=== PATIENT | female | born 2000 | race Caucasian/White ===

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

== ENCOUNTER 2018-05-15 05:35 | Day surgery (SDC) | payer SELFPAY ==
--- NOTE | 2018-05-14 21:09 | PDGENHP ---
History and Physical - Chief Complaint Right Hip Pain - History of Present Illness 1. History of Right MARY 2. History of Left MARY 3. 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 ~~Bilateral Femoral Antetorsion ( Clinical) HISTORY OF PRESENT ILLNESS: Alecis a 18 y.o.~~female~who I have had the pleasure to consult on today. I have enjoyed meeting her.~Deanne~lives in [facility].~~Deanne~is single;~deanne~has no ~children. ~Alecenjoys volleyball, walking and working out occasionally. Georgiana's~bilateral~hip pain started in 2009, with~no~recalled trauma or injury , and with no~previous complaints. Alecdoes not have~a known history of hip dysplasia. Presentation today is of~C type~bilateral~hip pain and some times radiate to her knee on the left. ~The hip~does~wake her~at night and does~click and catch on her. Sitting~can be uncomfortable~for her.~Alecdoes~report suffering from lower back pain episodes. Alechas not~participated in physical therapy and has~tried other conservative measures including excercises.~Deanne~has not~received sufficient symptomatic improvement. Alechas~utilized medication for pain management, including NSAID and OTC acetaminophen.~Alechas used medication for 5~years. Alecunderstands that she~has a hip and pelvis problem which should be researched and wishes to get a better understanding of her~hip status, followed by an establishment of a treatment strategy, hoping chakawould be able to get back to her~well being active life. History: Past medical history:~~ None which is relevant~ Relevant familial history:~Mom has had B/L hip replacement and the first one was when she was 33 years. Multiple family members has had hip replacement at young age. Past surgical history:~ Left Hip Scope Left MARY Left hip hardware removal Right Hip Scope Right MARY Alechad no issues with general anesthesia. I have reviewed, verified and agree with the past medical, surgical, family and social history. Current Medications:~has a current medication list which includes the following prescription(s): lorazepam, proair hfa, prochamber, and symbicort. ~ ALLERGIES:~has No Known Allergies. Objective: Physical Examination: Alecis 5~feet 2~inches tall and weighs 122~Lbs. Alecis AAO x3; she~is well-nourished, in NAD. Skin is warm and dry. ~Breathing is non-labored. ~CV with RRR by pulse. Abdomen is soft, NTND. Currently,~she~walks with a normal~gait. Trendelenburg sign is~negative~and proprioception is normal,~both~sides. She~presents with moderate~signs of joint laxity. Beightons Score:~5 ~ Lower spine examination is~negative~for sciatic or femoral nerve irritation with negative~SLR &~femoral stretch tests. Range of motion of the spine is normal~for flexion, extension, and rotations, with~no~associated pain. Axial lumbar pain. Strength, Sensation and pulses are~normal -~bilaterally Ankles and knees exams are~normal~and no~mal-alignment is evident. She~has no leg length discrepancy. Thigh circumference is~symmetric~with no evidence for muscle atrophy~on both~ sides. Hip ROM (degrees): FL ER At 90~hip FL IR At 90~hip FL AB AD EX IR Neutral hip ER Neutral hip R 120 50 55 55 15 5 75 40 L 120 50 60 50 5 0 70 20 Specific hip and pelvis tests: Quadrant CHENCHO Roll Add. Longus R +++ +++ Negative Negative L +++ +++ Negative + Glut. Med ITB Pos. Imp R Negative 5/5 strength Negative 5/5 strength Negative L Negative 5/5 strength Negative 5/5 strength Negative Squeeze test measured~normal Bony Symphysis pubis is~pain free~to touch while concentric activity of the rectus abdominis, does~not~produce pain at its insertion. Ilio Psos specific tests are~negative for pain during cycling for~both hips~and no snap. HF has~good strength, no pain~both hips. Anterior~and lateral~capsule tenderness~bilaterally. Greater trochanteric burse is~painful~on the left hip. Piriformis tests: FAIR is~negative,~with no~local signs of neuritis related to sciatic nerve. SIJs examination is~produces pain on~left side~with normal~CHENCHO in relation and local tenderness. Hamstrings tests are~positive~functional contraction and positive~tendinopathy both hips. On a daily basis, the following percentages reflect~Georgiana's overall total pain: Deep hip:~100% Imaging: Radiology studies which I have personally reviewed, analyzed and measured are below: XR: AP of the hip and pelvis: Performed in a~good~technique Coccyx to pubic symphysis distance~1~cm. 10 degrees~caudal. [place] Lines are~preserved. No~Pathological signs are seen in the Symphysis Pubis. No~Pathological signs are seen at the Ischial tuberosity. ~ Specific measurements show: NSA~ LCE Sourcil~Angle Sharp's angle Lat. Cam Lat. Pincer C.Over~sign Head~Coverage % ATDmm R N 19 11 43 + - 12 69 N L N 17 12 44 + - - 67 N Pos. wall sign ISS NAD ~~Dysplasia Comments R Negative Negative 12.2~mm +++ L Negative Negative 14.9~mm +++ Sclerosis Sup. Lat. OA Cysts Joint Space-WBZ Joint Space-Medial R Negative Negative Negative 3.5~mm 3.2~mm L Negative Negative Negative 3.7~mm 3.1~mm X Table lateral: Anterior cam lesion is~seen~on both hips. 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 Physical examination, imaging, and~her~story correspond with the diagnosis mentioned above. I explained that hip dysplasia is a condition wherein the hip joint has excessive play~and instability due to a variety of factors, including the depth and adequacy of the socket, the orientation of the femur bone, and ligament laxity around the hip joint. Dysplasia ranges in severity from borderline to willian, with treatment options being specific to the specific nature of the problem. Left untreated, the instability in the hip joint can cause progressive tearing of the labrum and deterioration of the surface cartilage, ultimately resulting in progressive osteoarthritis of the hip. I explained that femoroacetabular impingement (RICHARD - Cam type) arises due to a bony or soft tissue conflict between the femur (ball) and acetabulum (socket) caused by an abnormality in the shape of the femoral head and neck. Over time, repetitive impingement can result in damage to the labrum and adjacent surface cartilage within the socket, ultimately giving rise to progressive osteoarthritis of the hip. I explained that although a labral tear can be a source of pain, it is rarely the root of the problem and typically occurs secondary to an underlying abnormality in the shape and mechanics of the hip joint. I reviewed conservative treatment options for Dysplasia and RICHARD including activity modification to avoid positions of impingement or instability, physical therapy, non-steroidal anti-inflammatory medications, and various injections (corticosteroid and PRP) aimed at reducing inflammation in the hip joint or/and preventing dynamic instability and impingement. PRP injections may promote healing and reduce symptoms in certain cases but it will not repair chronically damaged tissue. Although these measures may help to buy time~and reduce current level of symptoms, they are not a definitive solution to the problem given the underlying abnormality in the shape of the hip joint. Patients who have failed conservative management and continue to experience symptoms are candidates for definitive surgical treatment, which may consist of hip arthroscopy alone or in combination with more invasive bony realignment procedures of the hip socket and/or femur called periacetabular osteotomy (MARY) or derotational femoral osteotomy (DFO). Hip arthroscopy typically includes treating the labrum with either repair or reconstruction of the torn labrum; as well as addressing the underlying abnormalities by restoring the normal shape to the hip joint. If the cartilage is damaged a Microfracture surgical procedure may also be necessary to help stimulate the growth of fibrocartilage. If a patient requires a labral reconstruction or a Microfracture, the initial rehabilitation from the surgery may take longer, but the chcf results are typically favorable. I reviewed the technical aspects of hip arthroscopy including risks, benefits, and expected course of recovery.~Georgiana~understands that hip arthroscopy is a minimally invasive outpatient procedure carried out through small incisions on the outer aspect of the hip joint. During surgery, the labral tear will be identified and either repaired or reconstructed~using bone anchors and suture material. Additionally, any excessive bone will be removed with a high-speed stanford to reshape the hip joint and restore normal anatomy. Risks include infection, bleeding, injury to nearby nerves or vessels, stiffness, persistent pain, instability, venous thromboembolic disease, and traction related complications including temporary foot numbness. Rarely, revision surgery may be required to address these problems. Overall recovery takes approximately 4~ 8~months depending on the extent of damage and degree of repair. In the event that the labral tissue quality is inadequate for successful repair and healing,~Georgiana~understands that a labral reconstruction will be performed. This procedure entails placing a cadaver tissue graft within the hip joint and stabilizing it with bone anchors to build a new labrum. The overall recovery time for labral reconstruction is similar to that of labral repair, although the surgical procedure takes longer to perform. I reviewed the technical aspects of periacetabular osteotomy (MARY) including risks, benefits, and expected course of recovery.~Georgiana~understands that MARY is an inpatient procedure carried out through two medium sized incisions on the front and back of the hip joint. The hip socket is cut, realigned, and stabilized with 2 3 internal screws. Risks include infection, bleeding, injury to nearby nerves or vessels, stiffness, persistent pain, instability, failure of bony healing, implant related complications, and venous thromboembolic disease. Rarely, revision surgery may be required to address these problems. Risks, potential complications, side effects and recovery from surgical procedure were discussed in length. We explained how this surgery is an open procedure, and though patients tend to do well in the long-term, it involves significant pain in the first 2-4 weeks post-op and a rather lengthy rehab.~Overall recovery takes approximately 6 12~months depending on the extent of damage and degree of repair. Georgiana~understands that she~will undergo hip arthroscopy 1 week prior to the MARY to address damage inside the hip joint. Georgiana~understands that hip arthroscopy and MARY are two separate procedures that are best performed one week apart, with the arthroscopy commencing first to "tighten up" any pathology evident in the hip joint (labral repair, etc.) and the MARY open procedure occurring 7-10 days later to realign the acetabulum. Georgiana~will review the info presented. In order to obtain more detailed information regarding the alignment, orientation, and shape of the bony hip and pelvis I will order a CT scan to be performed. The results of the CT scan, including femoral torsion and acetabular version measured values and 3D images, will aid me in deciding on the best treatment strategy and surgical pre-planning. In order to evaluate the integrity of the surface cartilage within the hip joint , I will order a delayed gadolinium enhanced MRI of cartilage (dGEMRIC). This study will determine whetherCeliois a good candidate for hip preservation surgery. Alecis going to contact us after completing her~imaging studies. Alecis happy with this plan. I have also supplied~~with handouts, outlining the expected surgical treatment and rehab involved. I wishCelioall the best, ~~ Bryon Hollins MD History Information - Allergies/Home Medication List Allergies/Adverse Reactions: povidone-iodine [From Betadine] Allergy (Verified 11/25/17 08:15) Rash soap [From Betadine] Allergy (Verified 11/25/17 08:15) Rash Home Medications: Amethia Lo Tablet 1 tab PO DAILY 10/18/17 [Last Taken 11/25/17 05:00] Albuterol [Proventil Inhaler HFA (*)] 1 - 2 puffs IH Q4H PRN 11/18/17 [Last Taken 11/20/17 08:00] Naproxen Sodium [Aleve 220 MG (*)] 220 mg PO BID 11/18/17 [Last Taken Unknown] I have personally reviewed and updated: medical history - Social History Smoking Status: Never smoked Review of Systems Review of Systems: Physical Exam Physical Exam:
[2018-05-15] MEDS ORDERED: ceFAZolin 2 GM/DEXTROSE 100 ML IV ONE (05:51)
[2018-05-15] MEDS ORDERED: PREGABALIN 150 MG CAP PO ONE (05:51)
[2018-05-15] MEDS ORDERED: ACETAMINOPHEN 500 MG TAB PO ONE (05:51)
[2018-05-15] MEDS ORDERED: LR 1,000 ML IV ONE (05:52)
[2018-05-15] MEDS ORDERED: fentaNYL 100 MCG/2 ML INJ IVP PRN (06:16)
[2018-05-15] MEDS ORDERED: MEPERIDINE 25 MG/0.5 ML AMP IVP PRN (06:16)
[2018-05-15] MEDS ORDERED: PHENYLEPHRINE HCL 100 MCG/ML SYR IVP PRN (06:16)
[2018-05-15] MEDS ORDERED: PROMETHAZINE HCL 25 MG/ML INJ IVP PRN (06:16)
[2018-05-15] MEDS ORDERED: HYDROmorphONE/DILAUDID 2 MG/ML INJ IVP PRN (06:16)
[2018-05-15] MEDS ORDERED: NALOXONE HCL 0.4 MG/ML INJ IVP PRN (06:16)
[2018-05-15] MEDS ORDERED: ONDANSETRON 4 MG/2 ML VIAL IVP PRN (06:16)
[2018-05-15] MEDS ORDERED: METOCLOPRAMIDE 10 MG/2 ML VIAL IVP PRN (06:16)
[2018-05-15] MEDS ORDERED: MIDAZOLAM 2 MG/2 ML VIAL IVP ONE (06:20)
[2018-05-15] MEDS ORDERED: ONDANSETRON 4 MG/2 ML VIAL ONE ×2 (06:30→09:52)
[2018-05-15] MEDS ORDERED: DEXAMETHASONE 4 MG/ML VIAL ONE (06:30)
[2018-05-15] MEDS ORDERED: fentaNYL 250 MCG/5 ML INJ ONE (06:30)
[2018-05-15] MEDS ORDERED: PROPOFOL 200 MG/20 ML VIAL ONE (06:30)
[2018-05-15] MEDS ORDERED: LIDOCAINE 2% 5 ML SDV ONE (06:30)
[2018-05-15] MEDS ORDERED: SCOPOLAMINE HYDROBROMIDE 1 MG/3 DAYS PATCH TD SCH (06:45)
--- NOTE | 2018-05-15 06:59 | PDANEPAE ---
ANE Past Medical History - Cardiovascular History Hx Hypertension: No Hx Arrhythmias: No Hx Chest Pain: No Hx Coronary Artery / Peripheral Vascular Disease: No Hx CHF / Valvular Disease: No Hx Palpitations: No - Pulmonary History Hx COPD: No Hx Asthma/Reactive Airway Disease: Yes Hx Recent Upper Respiratory Infection: No Hx Oxygen in Use at Home: No Hx Sleep Apnea: No Sleep Apnea Screening Result - Last Documented: Negative Pulmonary History Comment: USES ALBUTEROL INHALER-PRN - Neurologic History Hx Cerebrovascular Accident: No Hx Seizures: No Hx Dementia: No - Endocrine History Hx Diabetes: No - Renal History Hx Renal Disorders: No - Liver History Hx Hepatic Disorders: No - Neurological & Psychiatric Hx Hx Neurological and Psychiatric Disorders: No - Cancer History Hx Cancer: No - Congenital Disorder History Hx Congenital Disorders: Yes Congenital History Comment: BILAT HIP DYSPLASIA - GI History Hx Gastrointestinal Disorders: No - Other Health History Other Health History: R HIP LABRAL TEAR - Chronic Pain History Chronic Pain: Yes (R HIP) - Surgical History Prior Surgeries: R HIP SCOPE AND MARY 11/21. L HIP SCOPE 11-20. L HIP MARY. L HIP HARDWARE REMOVAL ANE Review of Systems Review of Systems: - Exercise capacity METS (RN): 6 METS ANE Patient History - Allergies Allergies/Adverse Reactions: povidone-iodine [From Betadine] Allergy (Verified 11/25/17 08:15) Rash soap [From Betadine] Allergy (Verified 11/25/17 08:15) Rash - Home Medications Home Medications: Amethia Lo Tablet 1 tab PO DAILY 10/18/17 [Last Taken 05/14/18] Albuterol [Proventil Inhaler HFA (*)] 1 - 2 puffs IH Q4H PRN 11/18/17 [Last Taken 04/15/18] Naproxen Sodium [Aleve 220 MG (*)] 220 mg PO BID 11/18/17 [Last Taken Unknown] - NPO status NPO Since - Liquids (Date): 05/15/18 NPO Since - Liquids (Time): 03:30 NPO Since - Solids (Date): 05/14/18 NPO Since - Solids (Time): 18:30 - Smoking Hx Smoking Status: Never smoked - Family Anes Hx Family Hx Anesthesia Complications: NA ANE Labs/Vital Signs - Vital Signs Blood Pressure: 140/79 Heart Rate: 73 Respiratory Rate: 16 O2 Sat (%): 99 Height: 157.48 cm Weight: 55.792 kg ANE Physical Exam - Airway Neck exam: FROM Mallampati Score: Class 2 Mouth exam: normal dental/mouth exam - Pulmonary Pulmonary: no respiratory distress, no rales or rhonchi, clear to auscultation - Cardiovascular Cardiovascular: regular rate and rhythym, no murmur, rub, or gallop - ASA Status ASA Status: II ANE Anesthesia Plan Anesthesia Plan: general endotracheal anesthesia
[2018-05-15] MEDS ORDERED: LIDOCAINE 1% 300 MG/30 ML SDV ONE (07:00)
--- NOTE | 2018-05-15 09:31 | POSTOPPROG ---
Post Op Note Date of Operation: 05/15/18 Surgeon: Sanju Valadez Hearing Officer: Dr. Dawson Anesthesia: GET(General Endotracheal) Pre-op Diagnosis: Right hip retained hardware Post-op Diagnosis: same Procedure: Right hip hardware removal Inf/Abcess present in the surg proc area at time of surgery?: No
[2018-05-15 10:17] VITALS: BP 133/78
== END 2018-05-15 10:10 | disposition home or self-care (01) ==
LOC: FSGY 05:35
PROVIDERS: ATTEND Orthopaedic Surgery Sports Medicine
PROC: 0QP204Z Removal of Internal Fixation Device from Right Pelvic Bone, Open Approach (ICD-10-PCS; principal; 2018-05-15 07:15)
DX: M25.551 Pain in right hip (principal); T84.84XA Pain due to internal orthopedic prosthetic devices, implants and grafts, initial encounter
CPT/HCPCS: J0690; J1100; J2250; J2405; J2704; J3010